=== PATIENT | male | born 1950 | race Caucasian/White ===

== ENCOUNTER 2017-07-09 10:47 | Outpatient (CLI) | payer OTHER ==
--- NOTE | 2017-07-09 12:04 | Diagnostic Imaging Report ---
Indication: Cough Technique: 2 views of the chest Comparison: None Findings: Lungs and pleural spaces are clear. There are bilateral basilar nipple shadows. The heart size is normal. There are degenerative proliferative changes of the thoracic spine Impression: No acute process
== END 2017-07-09 12:47 | disposition home or self-care (01) ==
LOC: RAD 10:47
DX: Z01.818 Encounter for other preprocedural examination (principal); Z01.812 Encounter for preprocedural laboratory examination
CPT/HCPCS: 71046